=== PATIENT | female | born 1985 | race Caucasian/White ===

== ENCOUNTER 2018-08-24 12:49 | Emergency (ER) | payer SELFPAY ==
--- NOTE | 2018-08-24 13:22 | ER Document Report ---
ED Medical Screen (RME) - General Chief Complaint: Abdominal Pain Stated Complaint: ABDOMINAL PAIN Time Seen by Provider: 08/24/18 13:20 Mode of Arrival: Ambulatory Information source: Patient, Relative TRAVEL OUTSIDE OF THE [place] IN LAST 30 DAYS: No - HPI Patient complains to provider of: R flank/abd pain Onset: Yesterday - pt. with onset of R flank/inguinal pain startgin last pm with exacerbation this am - Related Data Allergies/Adverse Reactions: iodine Allergy (Verified 08/24/18 12:52) latex Allergy (Verified 08/24/18 12:52) Penicillins Allergy (Verified 08/24/18 12:52) shellfish derived Allergy (Verified 08/24/18 12:52) iv contrast Allergy (Uncoded 08/24/18 12:52) mood stabalizers Allergy (Uncoded 08/24/18 12:52) Physical Exam - Vital signs Vitals: Temp Pulse Resp BP Pulse Ox 98.3 F 81 16 121/71 98 08/24/18 13:04 08/24/18 13:04 08/24/18 13:04 08/24/18 13:04 08/24/18 13:04 Course - Vital Signs Vital signs: Temp Pulse Resp BP Pulse Ox 98.3 F 81 16 121/71 98 08/24/18 13:04 08/24/18 13:04 08/24/18 13:04 08/24/18 13:04 08/24/18 13:04
[2018-08-24] MEDS ORDERED: MORPHINE SULFATE 10 MG/ML INJ IM ONE (14:15)
[2018-08-24] MEDS ORDERED: ONDANSETRON 4 MG TAB.RAPDIS PO ONE (14:15)
[2018-08-24 14:21] LABS: APPEARANCE,URINE SLIGHTLY-CLOUDY; BILIRUBIN,URINE NEGATIVE (NEGATIVE); COLOR,URINE YELLOW; GLUCOSE, URINE NEGATIVE (NEGATIVE); KETONES,URINE NEGATIVE (NEGATIVE); LEUKOCYTE ESTERASE,URINE LARGE (NEGATIVE); NITRITE,URINE NEGATIVE (NEGATIVE); PROTEIN,URINE NEGATIVE (NEGATIVE); URINE SPECIFIC GRAVITY 1.018; UROBILINOGEN,URINE NEGATIVE mg/dL (<2.0)
[2018-08-24 14:41] LABS: ABSOLUTE EOSINOPHILS # (AUTO) 0.1 10^3/uL (0.0-0.6); ABSOLUTE LYMPHOCYTES (AUTO) 2.2 10^3/uL (0.5-4.7); ABSOLUTE MONOCYTES (AUTO) 0.6 10^3/uL (0.1-1.4); ABSOLUTE NEUT (AUTO) 7.3 10^3/uL (1.7-8.2); BASOPHILS % (AUTO) 0.2 % (0-2); EOSINOPHILS % (AUTO) 0.6 % (0-6); HEMATOCRIT 41.3 % (36.0-47.0); HEMOGLOBIN 14.1 g/dL (12.0-15.5); LYMPHOCYTES % (AUTO) 21.6 % (13-45); MEAN CORPUSCULAR HEMOGLOBIN 29.6 pg (27.0-33.4); MEAN CORPUSCULAR HGB CONC 34.2 g/dL (32.0-36.0); MEAN CORPUSCULAR VOLUME 87 fl (80-97); MONOCYTES % (AUTO) 5.8 % (3-13); PLATELET COUNT 290 10^3/uL (150-450); RED BLOOD COUNT 4.77 10^6/uL (3.72-5.28); RED CELL DISTRIBUTION WIDTH 13.5 % (11.5-14.0); SEGMENTED NEUTROPHILS % (AUTO) 71.8 % (42-78); TOTAL CELLS COUNTED % (AUTO) 100 %; WHITE BLOOD COUNT 10.1 10^3/uL (4.0-10.5)
[2018-08-24] MEDS ORDERED: METOCLOPRAMIDE HCL ORAL SOLN 10 MG/10 ML UDCUP PO ONE (14:51)
[2018-08-24] MEDS ORDERED: DIPHENHYDRAMINE HCL 25 MG CAPSULE PO ONE (14:51)
[2018-08-24 14:55] LABS: ALANINE AMINOTRANSFERASE 27 U/L (9-52); ALBUMIN 4.6 g/dL (3.5-5.0); ALKALINE PHOSPHATASE 93 U/L (38-126); ANION GAP 8 (5-19); ASPARTATE AMINO TRANSFERASE 24 U/L (14-36); BILIRUBIN,DIRECT 0.2 mg/dL (0.0-0.4); BILIRUBIN,TOTAL 0.4 mg/dL (0.2-1.3); BLOOD UREA NITROGEN 11 mg/dL (7-20); CALCIUM 10.2 mg/dL (8.4-10.2); CARBON DIOXIDE 30 mmol/L (22-30); CHLORIDE 100 mmol/L (98-107); GLUCOSE 77 mg/dL (75-110); POTASSIUM 4.7 mmol/L (3.6-5.0); SODIUM 137.9 mmol/L (137-145); TOTAL PROTEIN 7.6 g/dL (6.3-8.2)
--- NOTE | 2018-08-24 15:04 | RADIOLOGY REPORT (SQ) ---
EXAM DESCRIPTION: CT ABD/PELVIS NO ORAL OR IV COMPLETED DATE/TIME: 08/24/2018 2:51 pm REASON FOR STUDY: R flank pain COMPARISON: None. TECHNIQUE: CT scan of the abdomen and pelvis performed without intravenous or oral contrast. Images reviewed with lung, soft tissue, and bone windows. Reconstructed coronal and sagittal MPR images revi ewed. All images stored on PACS. All CT scanners at this facility use dose modulation, iterative reconstruction, and/or weight based d osing when appropriate to reduce radiation dose to as low as reasonably achievable (ALARA). [facility]: Dose Right [facility]: CareDose [facility]: Dose Right [facility]: Teradose 4D [facility]: Smart Crossfader RADIATION DOSE: CT Rad equipment meets quality standard of care and radiation dose reduction techniq ues were employed. CTDIvol: 6.7 mGy. DLP: 368 mGy-cm.mGy. LIMITATIONS: None. FINDINGS: LOWER CHEST: No significant findings. No nodules or infiltrates. NON-CONTRASTED LIVER, SPLEEN, ADRENALS: Evaluation limited by lack of IV contrast. No identified sign ificant masses. PANCREAS: No masses. No peripancreatic inflammatory changes. GALLBLADDER: No identified stones by CT criteria. No inflammatory changes to suggest cholecystitis. RIGHT KIDNEY AND URETER: Minimal punctate lower pole nonobstructing calculus. No hydronephrosis. No ureteral stones. LEFT KIDNEY AND URETER: No solid masses. No significant calcification. No hydronephrosis or hydrouret er. AORTA AND RETROPERITONEUM: No aneurysm. No retroperitoneal masses or adenopathy. BOWEL AND PERITONEAL CAVITY: Moderate stool throughout the colon. Large and small bowel generally un remarkable in appearance. No ascites or abnormal gas. APPENDIX: Surgically absent. PELVIS, BLADDER, AND ABDOMINAL WALL:No abnormal masses. No free fluid. Bladder normal. BONES: No significant findings. OTHER: No other significant finding. IMPRESSION: 1. Minimal nonobstructive right nephrolithiasis. No evidence of hydronephrosis or urinary tract ston es otherwise. No acute or suspicious findings. TECHNICAL DOCUMENTATION: JOB ID: [id number] Quality ID # [id number]: Final reports with documentation of one or more dose reduction techniques (e.g., Au tomated exposure control, adjustment of the mA and/or kV according to patient size, use of iterative reconstruction technique) 2010 [employer]- All Rights Reserved Reading location - IP/workstation name: [email or web address]
[2018-08-24] MEDS ORDERED: CEPHALEXIN 500 MG CAPSULE PO ONE (15:08)
--- NOTE | 2018-08-24 15:31 | ER Document Report ---
ED General - General Chief Complaint: Abdominal Pain Stated Complaint: ABDOMINAL PAIN Time Seen by Provider: 08/24/18 13:20 Mode of Arrival: Ambulatory Information source: Patient Notes: 33-year-old female with history of recurrent urinary tract infections, previous history of kidney stone requiring lithotripsy, appendectomy presents with complaint of right lower quadrant abdominal cramping that started 3 days prior to arrival. Patient has had associated nausea, vomiting. Last menstrual period was 2 weeks prior to arrival. Patient admits to dysuria, denies hematuria, vaginal discharge. TRAVEL OUTSIDE OF THE [place] IN LAST 30 DAYS: No - HPI Onset: Other Onset/Duration: Persistent Quality of pain: Burning, Cramping Severity: Mild Associated symptoms: Chills, Nausea, Vomiting, Other - Dysuria Exacerbated by: Denies Relieved by: Denies Similar symptoms previously: Yes Recently seen / treated by doctor: No - Related Data Allergies/Adverse Reactions: ciprofloxacin [From Cipro] Allergy (Verified 08/24/18 14:33) iodine Allergy (Verified 08/24/18 12:52) latex Allergy (Verified 08/24/18 12:52) methocarbamol [From Robaxin] Allergy (Verified 08/24/18 14:28) Jittery ondansetron [From Zofran] Allergy (Verified 08/24/18 14:26) Hives Penicillins Allergy (Verified 08/24/18 12:52) shellfish derived Allergy (Verified 08/24/18 12:52) iv contrast Allergy (Uncoded 08/24/18 12:52) mood stabalizers Allergy (Uncoded 08/24/18 12:52) Past Medical History - General Information source: Patient, Relative - Social History Smoking Status: Current Every Day Smoker Cigarette use (# per day): Yes - 10 Chew tobacco use (# tins/day): No Frequency of alcohol use: None Drug Abuse: None Lives with: Spouse/Significant other Family History: Reviewed & Not Pertinent Patient has suicidal ideation: No Patient has homicidal ideation: No Renal/ Medical History: Reports: Hx Kidney Stones. Denies: Hx Peritoneal Dialysis Past Surgical History: Reports: Hx Appendectomy Review of Systems - Review of Systems Constitutional: Chills, Malaise EENT: denies: Blurred vision, Throat pain Cardiovascular: denies: See HPI, Palpitations, Dizziness Respiratory: denies: Cough, Short of breath Gastrointestinal: Abdominal pain, Nausea, Vomiting. denies: Blood in vomit, B lack stools Genitourinary: Dysuria, Flank pain Female Genitourinary: denies: Vaginal discharge, Vaginal bleeding Musculoskeletal: Back pain. denies: Leg swelling Skin: denies: Rash Hematologic/Lymphatic: denies: Swollen glands Neurological/Psychological: denies: Confusion, Headaches -: Yes All other systems reviewed and negative Physical Exam - Vital signs Vitals: Temp Pulse Resp BP Pulse Ox 98.3 F 81 16 121/71 98 08/24/18 13:04 08/24/18 13:04 08/24/18 13:04 08/24/18 13:04 08/24/18 13:04 - Notes Notes: This matter PHYSICAL EXAMINATION: GENERAL: Well-appearing, well-nourished and in no acute distress. HEAD: Atraumatic, normocephalic. EYES: Pupils equal round and reactive to light, extraocular movements intact, conjunctiva are normal. ENT: Nares patent, oropharynx clear without exudates. Moist mucous membranes. NECK: Normal range of motion, supple without lymphadenopathy LUNGS: Breath sounds clear to auscultation bilaterally and equal. No wheezes rales or rhonchi. HEART: Regular rate and rhythm without murmurs ABDOMEN: Soft, suprapubic abdominal tenderness no CVA tenderness, nondistended abdomen. No guarding, no rebound. No masses appreciated. Female : deferred Musculoskeletal: Normal range of motion, no pitting or edema. No cyanosis. NEUROLOGICAL: Cranial nerves grossly intact. Normal speech, normal gait. Normal sensory, motor exams PSYCH: Normal mood, normal affect. SKIN: Warm, Dry, normal turgor, no rashes or lesions noted. Course - Re-evaluation Re-evalutation: 08/24/18 21:25 Laboratory 08/24/18 08/24/18 08/24/18 13:13 14:25 14:25 WBC 10.1 RBC 4.77 Hgb 14.1 Hct 41.3 MCV 87 MCH 29.6 MCHC 34.2 RDW 13.5 Plt Count 290 Seg Neutrophils % 71.8 Lymphocytes % 21.6 Monocytes % 5.8 Eosinophils % 0.6 Basophils % 0.2 Absolute Neutrophils 7.3 Absolute Lymphocytes 2.2 Absolute Monocytes 0.6 Absolute Eosinophils 0.1 Absolute Basophils 0.0 Sodium 137.9 Potassium 4.7 Chloride 100 Carbon Dioxide 30 Anion Gap 8 BUN 11 Creatinine 0.73 Est GFR ( Amer) > 60 Est GFR (Non-Af Amer) > 60 Glucose 77 Calcium 10.2 Total Bilirubin 0.4 Direct Bilirubin 0.2 Neonat Total Bilirubin Not Reportable Neonat Direct Bilirubin Not Reportable Neonat Indirect Bili Not Reportable AST 24 ALT 27 Alkaline Phosphatase 93 Total Protein 7.6 Albumin 4.6 Urine Color YELLOW Urine Appearance SLIGHTLY-CLOUDY Urine pH 6.0 Ur Specific Dorothy 1.018 Urine Protein NEGATIVE Urine Glucose (UA) NEGATIVE Urine Ketones NEGATIVE Urine Blood NEGATIVE Urine Nitrite NEGATIVE Urine Bilirubin NEGATIVE Urine Urobilinogen NEGATIVE Ur Leukocyte Esterase LARGE H Urine WBC (Auto) 18 Urine RBC (Auto) 1 Squamous Epi Cells Auto 4 Urine Ascorbic Acid NEGATIVE Urine HCG, Qual NEGATIVE Abdomen/Pelvis CT 08/24/18 13:20 IMPRESSION: 1. Minimal nonobstructive right nephrolithiasis. No evidence of hydronephrosis or urinary tract stones otherwise. No acute or suspicious findings. Temp Pulse Resp BP Pulse Ox 98.7 F 88 16 125/91 H 98 08/24/18 15:46 08/24/18 15:46 08/24/18 13:04 08/24/18 15:46 08/24/18 15:46 patient presents with symptoms consistent with an acute cystitis. Vitals wnl. No history of fever, flank pain, or constitution symptoms to suggest ascending infection at this time. CBC, CMP are unremarkable. CT of the abdomen and p lili ordered by the physician in triage shows a right kidney stone without evidence of hydronephrosis or urinary tract stones. No CT evidence of pyelonephritis. Patient is well in appearance, tolerating oral intake without difficulty. Mild suprapubic abdominal tenderness. No tenderness to suggest , biliary pathology, acute pancreatitis, tubo-ovarian abscesses, or pelvic inflammatory disease. Patient has a surgical history of appendectomy. Patient will be started on antibiotics at this time. A culture has been sent. They will be discharged with return precautions and follow-up recommendations. 08/24/18 21:27 - Vital Signs Vital signs: Temp Pulse Resp BP Pulse Ox 98.7 F 88 16 125/91 H 98 08/24/18 15:46 08/24/18 15:46 08/24/18 13:04 08/24/18 15:46 08/24/18 15:46 - Laboratory Result Diagrams: 08/24/18 14:25 08/24/18 14:25 Laboratory results interpreted by me: 08/24/18 13:13 Ur Leukocyte Esterase LARGE H - Diagnostic Test Radiology reviewed: Image reviewed, Reports reviewed Discharge - Discharge Clinical Impression: UTI (urinary tract infection) Qualifiers: Urinary tract infection type: site unspecified Hematuria presence: without hematuria Qualified Code(s): N39.0 - Urinary tract infection, site not specified Condition: Good Disposition: HOME, SELF-CARE Instructions: Urinary Tract Infection ([facility]) Additional Instructions: Your urine shows findings consistent with a urinary tract infection. Please take all the antibiotics as directed even if your symptoms have improved. Please follow-up with your primary care physician as needed. Return to emergency room if you develop fever >101F, persistent vomiting, become lethargic, have severe pain in your sides, or any other symptoms that are concerning to you. Prescriptions: Cephalexin Monohydrate [Keflex 500 mg Capsule] 500 mg PO BID 7 Days #14 capsule Naproxen 500 mg PO BID PRN #20 tablet. PRN Reason: Abdominal Cramping Phenazopyridine HCl [Pyridium 200 mg Tablet] 200 mg PO TID #15 tablet Promethazine HCl [Phenergan 25 mg Tablet] 25 mg PO Q8H PRN #12 tablet PRN Reason: For Nausea/Vomiting Forms: Return to Work
[2018-08-24 15:50] VITALS: BP 125/91
== END 2018-08-24 15:53 | disposition home or self-care (01) ==
LOC: ER 12:49
DX: N39.0 Urinary tract infection, site not specified (principal); R10.31 Right lower quadrant pain; R11.2 Nausea with vomiting, unspecified; R53.81 Other malaise; F17.210 Nicotine dependence, cigarettes, uncomplicated; Z87.440 Personal history of urinary (tract) infections; Z87.442 Personal history of urinary calculi; Z88.3 Allergy status to other anti-infective agents; Z91.040 Latex allergy status; Z88.0 Allergy status to penicillin; Z91.013 Allergy to seafood
CPT/HCPCS: 99284; 96372; 36415; 85025; 81025; 80053; 81001; 74176; J2270